=== PATIENT | male | born 1980 | race Caucasian/White ===

== ENCOUNTER 2023-07-31 01:44 | Emergency (ER) | payer MEDICAID ==
[~2023-07-31] VITALS: Ht 182.9 cm; Wt 60.0 kg
[2023-07-31 01:49] VITALS: BP 139/93; PULSE 82; RESP 28; TEMP 98.6; O2SAT 99
== END 2023-07-31 03:39 | disposition left against medical advice (07) ==
LOC: ER 01:44
DX: R07.89 Other chest pain (principal); F11.10 Opioid abuse, uncomplicated
CPT/HCPCS: 93005; 99283

== ENCOUNTER 2024-04-29 14:48 | Emergency (ER) | payer MEDICAID, OTHER ==
[~2024-04-29] VITALS: Ht 175.3 cm; Wt 63.5 kg
[2024-04-29 14:58] VITALS: O2SAT 99
[2024-04-29 16:26] LABS: HEMATOCRIT. 43.6 % (42.0-52.0); HEMOGLOBIN. 14.6 g/dL (14.0-18.0); MEAN CORPUSCULAR HEMOGLOBIN 33.1 pg (28.0-32.0); MEAN CORPUSCULAR HGB CONC 33.6 g/dL (31.0-37.0); MEAN CORPUSCULAR VOLUME 98.5 fL (80.0-94.0); MEAN PLATELET VOLUME 9.7 fl (7.4-10.4); PLATELET 181 x1000/uL (130-400); RED BLOOD CELL COUNT 4.43 mill/uL (4.7-6.1); RED CELL DISTRIBUTION WIDTH 12.2 % (11.6-14.6); WHITE BLOOD COUNT 4.9 x1000/uL (4.5-11.0)
[2024-04-29 16:28] LABS: DIFFERENTIAL COMMENT 1
[2024-04-29 16:33] LABS: CHLORIDE 100 mEq/L (98-107); POTASSIUM 3.8 mEq/L (3.5-5.1); SODIUM 135 mEq/L (136-145)
[2024-04-29 16:34] LABS: CALCIUM 9.6 mg/dL (8.7-10.4); CARBON DIOXIDE 28 mEq/L (21-32)
[2024-04-29 16:39] LABS: CREATININE 0.8 mg/dL (0.6-1.3); GLUCOSE 109 mg/dL (70-105); UREA NITROGEN BLOOD 7 mg/dL (9-23)
[2024-04-29 16:48] LABS: TROPONIN I HIGH SENSITIVITY < 4 ng/L (3.0-53)
[2024-04-29] MEDS ORDERED: IBUP-2029 MT (18:27)
[2024-04-29] MEDS ORDERED: METH-653 MT (18:27)
[2024-04-29 18:52] LABS: PLATELET ESTIMATE NORMAL
[2024-04-29 19:11] VITALS: BP 144/77; PULSE 95; RESP 16; TEMP 36.72516; O2SAT 99
== END 2024-04-29 19:20 | disposition home or self-care (01) ==
LOC: ER 14:48
DX: J06.9 Acute upper respiratory infection, unspecified (principal); R05.9 Cough, unspecified; R50.9 Fever, unspecified; R07.89 Other chest pain
CPT/HCPCS: 36415; 71045; 80048; 84484; 85025; 93005; 99285